=== PATIENT | female | born 1970 | race Caucasian/White ===

== ENCOUNTER 2021-10-21 10:53 | Day surgery (SDC) | payer OTHER ==
[2021-10-18 14:11] VITALS: BMI 31.8
[2021-10-21] MEDS ORDERED: PROPOFOL 20 ML ONE ×4 (11:22→11:27)
[2021-10-21] MEDS ORDERED: LIDOCAINE HCL/PF 2% SDV 5ML VIAL ONE ×2 (11:22→11:27)
[2021-10-21 12:48] VITALS: PULSE 85
[2021-10-21 13:17] VITALS: BP 103/65; TEMP 98
== END 2021-10-21 13:30 | disposition home or self-care (01) ==
LOC: FASU-ENDO 10:53
PROVIDERS: ATTEND Internal Medicine Gastroenterology
PROC: 0DJD8ZZ Inspection of Lower Intestinal Tract, Via Natural or Artificial Opening Endoscopic (ICD-10-PCS; principal; 2021-10-21 12:25)
DX: Z12.11 Encounter for screening for malignant neoplasm of colon (principal); K64.1 Second degree hemorrhoids; K64.4 Residual hemorrhoidal skin tags